=== PATIENT | female | born 1955 | race Hispanic/Latino ===

== ENCOUNTER 2018-08-14 10:14 | Observation (INO) | payer BC ==
[2018-08-10 10:52] VITALS: BP 163/71
[2018-08-10 10:54] LABS: BASOPHILS % (AUTO) 0.4 % (0.0-5.0); HEMATOCRIT 40.4 % (36-48); LYMPHOCYTES % (AUTO) 35.3 % (21.0-51.0); MEAN CORPUSCULAR HEMOGLOBIN 30.7 pg (27.0-33.0); MEAN CORPUSCULAR HGB CONC 34.3 g/dL (32.0-36.0); MEAN CORPUSCULAR VOLUME 89.4 fL (79-99); NEUTROPHILS % (AUTO) 57.3 % (40.0-77.0); PLATELET COUNT (AUTO) 89 K/uL (130-400); RED BLOOD CELL COUNT(AUTO) 4.52 MIL/uL (4.00-5.50); RED CELL DISTRIBUTION WIDTH 12.8 % (11.0-15.5)
[2018-08-10 11:01] LABS: CREATININE 0.8 mg/dL (0.5-1.5); POTASSIUM 3.8 mmol/L (3.5-5.1)
[2018-08-10 11:45] LABS: PARTIAL THROMBOPLASTIN TIME 29.3 SEC (26.3-35.5); PROTHROMBIN TIME 10.5 SEC (9.6-11.6)
[~2018-08-14] VITALS: Ht 157.5 cm; Wt 63.3 kg
[2018-08-14] VITALS (11 sets, daily range): BP systolic 96–139; BP diastolic 58–66
[~2018-08-14 10:14] MED LIST: ASPI-1012 PO; CHOL50004 PO; FURO20TA4 PO; LISI-617 PO; METO25TA6 PO; PANT40TA25 PO; ROSU5TAB11 PO; SODIUM CHLORIDE 0.9% 1000ML 1,000 ML IV SCH
[2018-08-14] MEDS ORDERED: IODIXANOL 320 MG/ML 100 ML VIAL ONE (13:35)
[2018-08-14] MEDS ORDERED: BUPIVACAINE/PF 0.25% 30ML VIAL IJ ONE (13:35)
[2018-08-14] MEDS ORDERED: LIDOCAINE HCL 1% MDV 50ML VIAL ONE (13:36)
[2018-08-14] MEDS ORDERED: CEFAZOLIN SODIUM 1 GM VIAL ONE (14:15)
[2018-08-14] MEDS ORDERED: MEPERIDINE-PF 25 MG/ML SYG ONE (14:39)
[2018-08-14] MEDS ORDERED: MIDAZOLAM HCL 1 MG/ML 2ML VIAL ONE (14:40)
[2018-08-14] MEDS ORDERED: OCTYL 2-CYANOACRYLATE 1 EACH TP ONE (15:22)
[2018-08-14] MEDS ORDERED: ONDANSETRON HCL 4 MG/2 ML VIAL IV PRN (16:00)
[2018-08-14] MEDS ORDERED: ACETAMINOPHEN-CODEINE 300/30MG TAB PO PRN ×2 (16:00)
[2018-08-14] MEDS ORDERED: ACETAMINOPHEN 325 MG TAB PO PRN (17:15)
[2018-08-14] MEDS ORDERED: HYDROCODONE/ACETAMINOPHEN 5/325 MG TAB PO PRN (17:15)
[2018-08-14] MEDS ORDERED: ONDANSETRON HCL MDV 20ML 2 MG/ML VIAL IVP PRN (17:15)
[2018-08-15] MEDS: CEFAZOLIN SODIUM 1 GM VIAL IVP SCH ×2 (00:09→07:38)
[2018-08-15] MEDS: METOPROLOL TARTRATE 25 MG TAB PO SCH ×2 (00:09→07:38)
[2018-08-15 04:04] VITALS: BP 102/63
[2018-08-15 04:05] LABS: BASOPHILS % (AUTO) 0.3 % (0.0-5.0); EOSINOPHILS % (AUTO) 1.7 % (0.0-8.0); HEMATOCRIT 40.6 % (36-48); LYMPHOCYTES % (AUTO) 17.4 % (21.0-51.0); MEAN CORPUSCULAR HEMOGLOBIN 30.9 pg (27.0-33.0); MEAN CORPUSCULAR HGB CONC 34.7 g/dL (32.0-36.0); MEAN CORPUSCULAR VOLUME 88.9 fL (79-99); MONOCYTES % (AUTO) 6.1 % (3.0-13.0); NEUTROPHILS % (AUTO) 74.5 % (40.0-77.0); PLATELET COUNT (AUTO) 98 K/uL (130-400); RED BLOOD CELL COUNT(AUTO) 4.56 MIL/uL (4.00-5.50); WHITE BLOOD COUNT (AUTO) 6.8 K/uL (4.8-10.8)
[2018-08-15 04:23] LABS: ALBUMIN 4.3 g/dL (3.5-5.0); BILIRUBIN,TOTAL 0.7 mg/dL (0.2-1.0); CREATININE 0.8 mg/dL (0.5-1.5); POTASSIUM 3.8 mmol/L (3.5-5.1); TOTAL PROTEIN, SERUM 8.1 g/dL (6.0-8.3)
[2018-08-15] MEDS ORDERED: DOXY100C2 PO (07:15)
[2018-08-15 08:05] VITALS: BP 114/69
[2018-08-15] MEDS ORDERED: PANTOPRAZOLE SODIUM 40 MG TABLET.DR PO SCH (09:00)
[2018-08-15] MEDS ORDERED: ASPIRIN 325 MG TABLET PO SCH (09:00)
[2018-08-15] MEDS ORDERED: FUROSEMIDE 20 MG TABLET PO SCH (09:00)
[2018-08-15] MEDS ORDERED: LISINOPRIL 5 MG TABLET PO SCH (09:00)
[2018-08-15] MEDS ORDERED: Cholecalciferol (Vitamin D3) 5,000 UNIT PO SCH (09:00)
[2018-08-15] MEDS ORDERED: Rosuvastatin Calcium 5 MG PO SCH (21:00)
[2018-08-16] MEDS ORDERED: PANTOPRAZOLE SODIUM 40 MG TABLET.DR PO SCH (09:00)
== END 2018-08-15 09:45 | disposition home or self-care (01) ==
LOC: DAH 10:14 → DAHIP 10:15 → DAH 10:15 → 2DH 16:36
PROVIDERS: ADMIT Hospitalist; ATTEND Hospitalist
DX: I25.5 Ischemic cardiomyopathy (principal); E78.5 Hyperlipidemia, unspecified; G81.94 Hemiplegia, unspecified affecting left nondominant side; I11.0 Hypertensive heart disease with heart failure; I50.9 Heart failure, unspecified; I25.10 Atherosclerotic heart disease of native coronary artery without angina pectoris; I25.2 Old myocardial infarction; I62.9 Nontraumatic intracranial hemorrhage, unspecified; J96.90 Respiratory failure, unspecified, unspecified whether with hypoxia or hypercapnia; Z85.3 Personal history of malignant neoplasm of breast; Z86.73 Personal history of transient ischemic attack (TIA), and cerebral infarction without residual deficits; Z90.710 Acquired absence of both cervix and uterus; Z86.74 Personal history of sudden cardiac arrest; Z92.3 Personal history of irradiation; Z95.5 Presence of coronary angioplasty implant and graft; Z95.810 Presence of automatic (implantable) cardiac defibrillator; Z79.899 Other long term (current) drug therapy
CPT/HCPCS: 33249; 36415; 71046; 80048; 80053; 85025; 85610; 85730; 93005; 96374; 96376; 99156; 99157; A4606; C1721; G0378; J0690; J2175; J2250; J3490; Q9967

== ENCOUNTER 2019-02-06 05:36 | Day surgery (SDC) | payer BC ==
[~2019-02-06] VITALS: Ht 157.5 cm; Wt 68.0 kg
[2019-02-06] VITALS (7 sets, daily range): BP systolic 85–113; BP diastolic 42–68
[~2019-02-06 05:36] MED LIST changes: -SODIUM CHLORIDE 0.9% 1000ML 1,000 ML IV SCH
[2019-02-06] MEDS ORDERED: SODIUM CHLORIDE 0.9% 1000ML 1,000 ML IV ONE (06:17)
[2019-02-06] MEDS ORDERED: PROPOFOL 1000 MG/100 ML 100 ML IV ONE (08:04)
== END 2019-02-06 09:04 | disposition home or self-care (01) ==
LOC: DAH 05:36 → ENDO 05:36
PROVIDERS: ATTEND Internal Medicine
DX: Z12.11 Encounter for screening for malignant neoplasm of colon (principal); D12.3 Benign neoplasm of transverse colon; D12.2 Benign neoplasm of ascending colon; K57.30 Diverticulosis of large intestine without perforation or abscess without bleeding; K64.0 First degree hemorrhoids; D12.4 Benign neoplasm of descending colon; K29.50 Unspecified chronic gastritis without bleeding; K44.9 Diaphragmatic hernia without obstruction or gangrene; K21.9 Gastro-esophageal reflux disease without esophagitis; I10 Essential (primary) hypertension; E11.9 Type 2 diabetes mellitus without complications; E55.9 Vitamin D deficiency, unspecified; Z85.3 Personal history of malignant neoplasm of breast; Z79.899 Other long term (current) drug therapy; Z95.0 Presence of cardiac pacemaker; Z95.5 Presence of coronary angioplasty implant and graft; Z98.890 Other specified postprocedural states; Z86.010 Personal history of colon polyps; I25.10 Atherosclerotic heart disease of native coronary artery without angina pectoris
CPT/HCPCS: 43239; 45380; 45385; 93005; A4606; J2704; J7030

== ENCOUNTER → 2024-10-14 | Outpatient (CLI) | payer OTHER ==
[~2024-10-14] MED LIST changes: -LISI-617 PO; +LISI5TAB21 PO; -PANT40TA25 PO; +PANT40TA54 PO; -ROSU5TAB11 PO; +ROSU5TAB51 PO
[2024-10-14 16:51] LABS: CREATININE 0.8 mg/dL (0.5-1.0); POTASSIUM 3.8 mmol/L (3.5-5.1)
== END | disposition home or self-care (01) ==
LOC: LAB 13:14
PROVIDERS: ATTEND Internal Medicine Cardiovascular Disease
DX: I25.10 Atherosclerotic heart disease of native coronary artery without angina pectoris (principal)
CPT/HCPCS: 36415; 80048

== ENCOUNTER → 2024-10-31 | Outpatient (CLI) | payer OTHER ==
[~2024-10-31] MED LIST changes: +IOHEXOL 350 MG/ML 100ML INFUS..BTL IV ONE; +IOHEXOL-350 75 ML VIAL IV ONE
--- NOTE | 2024-10-31 13:04 | HMCIMG ---
CT CARDIAC ANGIO W/CONT. CCTA REASON: Atherosclerotic heart disease of [place] coronary artery without angina pect COMPARISON: None TECHNIQUE: Images are obtained through the heart in the axial plane before and during bolus IV contrast infusion, 100 cc Omnipaque 350. 2-D and 3-D multiplanar reconstruction images were then performed. The injection had to be repeated once due to motion artifact on the first sequence, total contrast volume was 200 cc. FINDINGS: This dictation is for the noncardiac findings only. Cardiac and coronary artery findings are reported separately. Visualized portions of the lungs are clear. There is normal-appearing pulmonary interstitium. There is no hilar or mediastinal lymphadenopathy. Chest wall structures appear unremarkable. IMPRESSION: 1. Unremarkable noncardiac portions of CT cardiac angiography.
== END | disposition home or self-care (01) ==
LOC: RAH 10:18
PROVIDERS: ATTEND Internal Medicine Cardiovascular Disease
DX: R07.9 Chest pain, unspecified (principal); I25.10 Atherosclerotic heart disease of native coronary artery without angina pectoris
CPT/HCPCS: 75574; Q9967

== ENCOUNTER 2024-12-19 06:20 | Day surgery (SDC) | payer OTHER ==
[2024-12-19] VITALS (10 sets, daily range): BP systolic 115–150; BP diastolic 58–74; PULSE 60–61; RESP 14–17; TEMP 97–98.2
[~2024-12-19] VITALS: Ht 154.9 cm; Wt 61.7 kg
[~2024-12-19 06:20] MED LIST changes: -ASPI-1012 PO; -CHOL50004 PO; +DONE-53 PO; -FURO20TA4 PO; -IOHEXOL 350 MG/ML 100ML INFUS..BTL IV ONE; -IOHEXOL-350 75 ML VIAL IV ONE; +LORA0.5T83 PO; +MELO-106 PO; +MEMA10TA21 PO; +ROSU10TA72 PO; -ROSU5TAB51 PO
[2024-12-19] MEDS: 0.9%NACL 1000ML 1,000 ML IV ONE (08:02)
[2024-12-19] MEDS ORDERED: proPOFol 10 MG/ML 20ML VIAL IV ONE (11:05)
--- NOTE | 2024-12-19 12:29 | NUR ---
Full and complete discharge instructions given to Patient and Family both verbally and in writing. Explained GI procedure precautions and follow up. All questions answered. PIV removed with catheter tip intact. Home with Family W/C to POV.
== END 2024-12-19 12:30 | disposition home or self-care (01) ==
LOC: DAH 06:20 → ENDO 06:20
PROVIDERS: ATTEND Internal Medicine Gastroenterology
DX: R13.10 Dysphagia, unspecified (principal); K29.50 Unspecified chronic gastritis without bleeding; K22.2 Esophageal obstruction; R12 Heartburn; K31.89 Other diseases of stomach and duodenum; I10 Essential (primary) hypertension; K21.9 Gastro-esophageal reflux disease without esophagitis; I25.10 Atherosclerotic heart disease of native coronary artery without angina pectoris; M19.90 Unspecified osteoarthritis, unspecified site; K44.9 Diaphragmatic hernia without obstruction or gangrene; K57.30 Diverticulosis of large intestine without perforation or abscess without bleeding; K64.0 First degree hemorrhoids; Z85.3 Personal history of malignant neoplasm of breast; Z86.73 Personal history of transient ischemic attack (TIA), and cerebral infarction without residual deficits; Z95.0 Presence of cardiac pacemaker; Z95.5 Presence of coronary angioplasty implant and graft; Z86.0100 Personal history of colon polyps, unspecified; Z79.899 Other long term (current) drug therapy
CPT/HCPCS: 43239; 43248; J7030 ×2; J2704; A4620; A4215 ×2; A4223; A4222; A4221; A4663; A4606; J3490